=== PATIENT | female | born 1960 | race Caucasian/White ===

== ENCOUNTER → 2017-07-11 | Outpatient (CLI) | payer BC | LOC: M RAD 18:14 | DX: M17.0 Bilateral primary osteoarthritis of knee (principal); S83.241A Other tear of medial meniscus, current injury, right knee, initial encounter; Y92.89 Other specified places as the place of occurrence of the external cause; Y93.89 Activity, other specified; X58.XXXA Exposure to other specified factors, initial encounter; Y99.8 Other external cause status | CPT/HCPCS: 73565 ==

== ENCOUNTER → 2017-07-20 | Outpatient (CLI) | payer BC | LOC: M RAD 17:40 | DX: S83.241A Other tear of medial meniscus, current injury, right knee, initial encounter (principal); X58.XXXA Exposure to other specified factors, initial encounter; Y92.89 Other specified places as the place of occurrence of the external cause; M22.41 Chondromalacia patellae, right knee | CPT/HCPCS: 73721 ==

== ENCOUNTER → 2017-08-28 | Outpatient (CLI) | payer BC ==
[2017-08-28 09:52] LABS: ANION GAP 9 MEQ/L (8-16); BLOOD UREA NITROGEN 19 MG/DL (7-18); CARBON DIOXIDE LEVEL 28 MEQ/L (21-32); CHLORIDE LEVEL 105 MEQ/L (98-107); CREATININE FOR GFR 0.98 MG/DL (0.55-1.30); GLOMERULAR FILTRATION RATE > 60.0 (>51); GLUCOSE, FASTING 82 MG/DL (70-100); POTASSIUM SERUM 4.4 MEQ/L (3.5-5.1); SODIUM LEVEL 142 MEQ/L (136-145)
== END ==
LOC: M LAB 08:25
DX: I10 Essential (primary) hypertension (principal)
CPT/HCPCS: 80048

== ENCOUNTER → 2017-08-28 | Outpatient (CLI) | payer BC ==
[2017-08-28 09:35] LABS: ESTIMATED AVERAGE GLUCOSE 108 MG/DL (60-110); HEMOGLOBIN A1c 5.4 %
[2017-08-28 10:29] LABS: CHOLESTEROL LEVEL 205 MG/DL (<200); CHOLESTEROL RISK RATIO 3.727 (<5); HDL CHOLESTEROL 55 MG/DL (>40); NON-HDL-C 150 MG/DL; TRIGLYCERIDES LEVEL 125 MG/DL (<150)
[2017-08-29 11:26] LABS: HEPATITIS C VIRUS ABY INDEX 0.1 INDEX (<0.8)
== END ==
LOC: M LAB 08:27
DX: Z11.59 Encounter for screening for other viral diseases (principal)
CPT/HCPCS: 83036

== ENCOUNTER 2017-11-22 20:33 | Observation (INO) | payer MEDICAID, BC, SELFPAY ==
[2017-11-22 21:14] LABS: BASO # 0.1 10^3/uL (0.0-0.2); BASO % 0.7 % (0.0-1.0); EOS # 0.2 10^3/uL (0.0-0.50); EOS % 2.5 % (0.0-3.0); HEMATOCRIT 39.1 % (36.0-47.0); HEMOGLOBIN 12.7 g/dl (12.0-15.5); IMMATURE GRANULOCYTE % 0.3 % (0-3.0); LYMPH # 3.8 10^3/uL (1.5-4.5); LYMPH % 39.4 % (24.0-44.0); MEAN CORPUSCULAR HGB CONC 32.5 g/dl (32.0-36.5); MONO # 0.7 10^3/uL (0.0-0.8); MONO % 7.3 % (0.0-5.0); NEUTROPHILS # 4.7 10^3/uL (1.8-7.7); NEUTROPHILS % 49.8 % (36.0-66.0); PLATELET COUNT, AUTOMATED 413 10^3/uL (150-450); RED BLOOD COUNT 4.71 10^6/uL (4.00-5.40); WHITE BLOOD COUNT 9.5 10^3/uL (4.0-10.0)
[2017-11-22 21:35] LABS: ALBUMIN 3.4 GM/DL (3.2-5.2); ALBUMIN/GLOBULIN RATIO 0.92 (1.00-1.93); ALKALINE PHOSPHATASE 71 U/L (45-117); ALT/SGPT 20 U/L (12-78); ANION GAP 10 MEQ/L (8-16); AST/SGOT 15 U/L (7-37); BILIRUBIN,DIRECT < 0.1 MG/DL (0.0-0.2); BILIRUBIN,TOTAL 0.3 MG/DL (0.2-1.0); BLOOD UREA NITROGEN 20 MG/DL (7-18); CALCIUM LEVEL 8.6 MG/DL (8.5-10.1); CARBON DIOXIDE LEVEL 22 MEQ/L (21-32); CHLORIDE LEVEL 108 MEQ/L (98-107); CPK CREATINE PHOSPHOKINASE 81 U/L (26-192); CREATININE FOR GFR 1.01 MG/DL (0.55-1.30); GLOMERULAR FILTRATION RATE 59.9 (>51); GLUCOSE, FASTING 98 MG/DL (70-100); MB/CK RELATIVE INDEX 1.73 (< OR =4); POTASSIUM SERUM 3.9 MEQ/L (3.5-5.1); SODIUM LEVEL 140 MEQ/L (136-145); TOTAL PROTEIN 7.1 GM/DL (6.4-8.2); TROPONIN I < 0.02 NG/ML (< 0.10)
[2017-11-22 22:45] LABS: KETONE, URINE AUTO RFX NEGATIVE (NEGATIVE); LEUKOCYTE ESTERASE UR AUTO RFX TRACE (NEGATIVE); MUCUS, URINE RFX SMALL (NEGATIVE); NITRITE, URINE AUTO RFX NEGATIVE (NEGATIVE); RBC, URINE AUTO RFX 1 /HPF (0-3); SPECIFIC GRAVITY UR AUTO RFX 1.018 (1.002-1.035); SQUAM EPITHELIAL CELL UR AURFX 0 /HPF (0-6); WBC, URINE AUTO RFX 5 /HPF (0-3)
[2017-11-23] MEDS: NS 1,000 ML IV (01:31)
[2017-11-23 01:56] LABS: ETHYL ALCOHOL (ETHANOL) < 0.003 % (0.000-0.010)
[2017-11-23 06:07] LABS: TROPONIN I < 0.02 NG/ML (< 0.10)
[2017-11-23] MEDS: LOSARTAN 50 MG TAB PO (09:06)
[2017-11-23] MEDS: ENOXAPARIN 40 MG/0.4 ML SYRINGE (J1650) SC (09:07)
[2017-11-23 18:47] LABS: BEDSIDE GLUCOSE 93 MG/DL (70-105)
[2017-11-24 06:22] LABS: HEMATOCRIT 37.3 % (36.0-47.0); HEMOGLOBIN 12.1 g/dl (12.0-15.5); MEAN CORPUSCULAR HEMOGLOBIN 27.2 pg (27.0-33.0); MEAN CORPUSCULAR HGB CONC 32.4 g/dl (32.0-36.5); MEAN CORPUSCULAR VOLUME 83.8 fl (80.0-96.0); PLATELET COUNT, AUTOMATED 365 10^3/uL (150-450); RED BLOOD COUNT 4.45 10^6/uL (4.00-5.40); RED CELL DISTRIBUTION WIDTH 14.1 % (11.5-14.5); WHITE BLOOD COUNT 7.6 10^3/uL (4.0-10.0)
[2017-11-24 06:45] LABS: ANION GAP 5 MEQ/L (8-16); BLOOD UREA NITROGEN 14 MG/DL (7-18); CALCIUM LEVEL 8.7 MG/DL (8.5-10.1); CARBON DIOXIDE LEVEL 27 MEQ/L (21-32); CHLORIDE LEVEL 108 MEQ/L (98-107); CREATININE FOR GFR 0.81 MG/DL (0.55-1.30); GLOMERULAR FILTRATION RATE > 60.0 (>51); GLUCOSE, FASTING 76 MG/DL (70-100); POTASSIUM SERUM 4.1 MEQ/L (3.5-5.1); SODIUM LEVEL 140 MEQ/L (136-145)
[2017-11-24] MEDS: LOSARTAN 50 MG TAB PO (09:00)
[2017-11-24] MEDS: ENOXAPARIN 40 MG/0.4 ML SYRINGE (J1650) SC (09:00)
[2017-11-25 06:13] LABS: HEMATOCRIT 37.3 % (36.0-47.0); HEMOGLOBIN 11.9 g/dl (12.0-15.5); MEAN CORPUSCULAR HGB CONC 31.9 g/dl (32.0-36.5); MEAN CORPUSCULAR VOLUME 84.8 fl (80.0-96.0); PLATELET COUNT, AUTOMATED 369 10^3/uL (150-450); RED CELL DISTRIBUTION WIDTH 14.1 % (11.5-14.5); WHITE BLOOD COUNT 8.6 10^3/uL (4.0-10.0)
[2017-11-25 06:36] LABS: ANION GAP 6 MEQ/L (8-16); BLOOD UREA NITROGEN 17 MG/DL (7-18); CALCIUM LEVEL 8.9 MG/DL (8.5-10.1); CARBON DIOXIDE LEVEL 26 MEQ/L (21-32); CHLORIDE LEVEL 106 MEQ/L (98-107); CREATININE FOR GFR 0.89 MG/DL (0.55-1.30); GLOMERULAR FILTRATION RATE > 60.0 (>51); GLUCOSE, FASTING 80 MG/DL (70-100); SODIUM LEVEL 138 MEQ/L (136-145)
[2017-11-25] MEDS: LOSARTAN 50 MG TAB PO (07:50)
[2017-11-25] MEDS: ENOXAPARIN 40 MG/0.4 ML SYRINGE (J1650) SC (07:50)
[2017-11-26 12:48] LABS: BEDSIDE GLUCOSE 44 MG/DL (70-105)
[2017-11-26 12:48] LABS: BEDSIDE GLUCOSE 118 MG/DL (70-105)
== END 2017-11-25 11:55 | disposition home or self-care (01) ==
LOC: M ED INP 11-23 01:31 → M MSPAV 11-23 13:57 → M ED 20:33
DX: R55 Syncope and collapse (principal); R00.1 Bradycardia, unspecified; G47.33 Obstructive sleep apnea (adult) (pediatric); I10 Essential (primary) hypertension; Z79.899 Other long term (current) drug therapy; Z88.0 Allergy status to penicillin
CPT/HCPCS: J1650

== ENCOUNTER → 2018-05-16 | Outpatient (REF) | payer OTHER ==
[~2018-05-16] MED LIST: ASPI1TAB PO; DILT360C16 PO; K-TA10TA2 PO; LASI20TA3 PO; LOSA100T50 PO; LOSA25TA14 PO; SPIR-10 PO; [UNRECOGNIZED DRUG - OTHER]
[2018-05-16 19:07] LABS: BLOOD UREA NITROGEN 19 MG/DL (7-18); CALCIUM LEVEL 8.8 MG/DL (8.5-10.1); CARBON DIOXIDE LEVEL 27 MEQ/L (21-32); CHLORIDE LEVEL 106 MEQ/L (98-107); CREATININE FOR GFR 0.84 MG/DL (0.55-1.30); GLOMERULAR FILTRATION RATE > 60.0 (>51); GLUCOSE, FASTING 77 MG/DL (70-100); POTASSIUM SERUM 4.7 MEQ/L (3.5-5.1); SODIUM LEVEL 139 MEQ/L (136-145); VITAMIN B12 LEVEL 497 PG/ML (247-911)
== END ==
LOC: M SFHCPLAZ 14:23
PROVIDERS: ATTEND Family Medicine
DX: I10 Essential (primary) hypertension (principal); R29.2 Abnormal reflex; R68.89 Other general symptoms and signs

== ENCOUNTER → 2018-07-22 | Outpatient (CLI) | payer OTHER ==
[~2018-07-22] MED LIST changes: -ASPI1TAB PO; +ASPI81TA26 PO; +DILT1CAP10 PO; -DILT360C16 PO
--- NOTE | 2018-07-22 12:57 | REP ---
MR BRAIN WITHOUT CONTRAST: HISTORY: Forgetfulness. COMPARISON: CT 11/22/2017. Scattered punctate areas of increased signal intensity on T2-weighted images are present in the periventricular and subcortical white matter. This represents small vessel ischemic disease. There is no intraparenchymal hemorrhage, infarct, mass or midline shift. The ventricular system and cortical sulci are dilated consistent with minimal volume loss. There is no extracerebral collection. The sinuses are clear. IMPRESSION: 1. Minimal small vessel ischemic disease. 2. Minimal volume loss. Electronically Signed by Mayo Rojas MD 07/22/2018 01:02 P
== END ==
LOC: M RAD 11:14
PROVIDERS: ATTEND Internal Medicine
DX: I67.82 Cerebral ischemia (principal)

== ENCOUNTER → 2018-09-06 | Outpatient (REF) | payer OTHER ==
[2018-09-06 14:38] LABS: BLOOD UREA NITROGEN 19 MG/DL (7-18); CALCIUM LEVEL 8.6 MG/DL (8.5-10.1); CARBON DIOXIDE LEVEL 30 MEQ/L (21-32); CHLORIDE LEVEL 107 MEQ/L (98-107); CREATININE FOR GFR 0.86 MG/DL (0.55-1.30); GLOMERULAR FILTRATION RATE > 60.0 (>51); GLUCOSE, FASTING 97 MG/DL (70-100); POTASSIUM SERUM 3.6 MEQ/L (3.5-5.1); SODIUM LEVEL 143 MEQ/L (136-145)
== END ==
LOC: M SFHCPLAZ 13:08
PROVIDERS: ATTEND Internal Medicine
DX: I10 Essential (primary) hypertension (principal)

== ENCOUNTER 2018-10-15 20:47 | Emergency (ER) | payer OTHER ==
[~2018-10-15] VITALS: Ht 162.6 cm; Wt 90.9 kg
[2018-10-15] MEDS ORDERED: KETOROLAC TROMETHAMINE 10 MG TAB PO ONE (22:15)
[2018-10-15] MEDS ORDERED: LIDOCAINE 2% MDV 20 ML VIAL SC ONE (22:15)
--- NOTE | 2018-10-15 23:33 | REPVR ---
EXAM: CT Cervical Spine Without Contrast EXAM DATE/TIME: 10/15/2018 10:46 PM CLINICAL HISTORY: 58 years old, female; Injury or trauma; Fall; Initial encounter; Blunt trauma TECHNIQUE: Imaging protocol: Computed tomography images of the cervical spine without contrast. Coronal and sagittal reformatted images were created and reviewed. Radiation optimization: All CT scans at this facility use at least one of these dose optimization techniques: automated exposure control; mA and/or kV adjustment per patient size (includes targeted exams where dose is matched to clinical indication); or iterative reconstruction. COMPARISON: US Duplex,carotid (complete) 11/23/2017 1:46 AM FINDINGS: Vertebrae: No fracture or subluxation. Discs/Spinal canal/Neural foramina: Mild interspace narrowing at C5-C6 and to a lesser degree C4-C5 and C6-C7. Minimal scattered degenerative changes of apophyseal joints and uncovertebral joints with minimal anterior spurring from C5-C7. No spinal or foraminal stenosis. Soft tissues: Unremarkable. Lungs: Lung apices are normal. IMPRESSION: 1. Minimal scattered degenerative changes with no spinal or foraminal stenosis. 2. Otherwise negative CT cervical spine. No acute fracture or subluxation. Electronically signed by: Adelso Iglesias On 10/15/2018 23:32:59 PM
--- NOTE | 2018-10-15 23:37 | REPVR ---
EXAM: CT Maxillofacial Without Contrast EXAM DATE/TIME: 10/15/2018 10:46 PM CLINICAL HISTORY: 58 years old, female; Injury or trauma; Fall; Initial encounter; Blunt trauma (contusions or hematomas); Nose; Additional info: Fell on face TECHNIQUE: Imaging protocol: Computed tomography images of the face without contrast. Coronal and sagittal reformatted images were created and reviewed. Radiation optimization: All CT scans at this facility use at least one of these dose optimization techniques: automated exposure control; mA and/or kV adjustment per patient size (includes targeted exams where dose is matched to clinical indication); or iterative reconstruction. COMPARISON: No relevant prior studies available. FINDINGS: Orbits: Orbits are normal. Globes are unremarkable. Sinuses: Minimal right maxillary sinus mucosal thickening with mild hypoplasia. Bones/joints: Degenerative change of the right TMJ. No fractures. Soft tissues: Mild soft tissue swelling of the nose. IMPRESSION: 1. Mild soft tissue swelling of the nose. 2. Minimal right maxillary sinus disease with mild hypoplasia. 3. Otherwise negative CT facial bones. No fractures. Electronically signed by: Adelso Iglesias On 10/15/2018 23:37:15 PM
--- NOTE | 2018-10-16 01:43 | REP ---
Clinical: Trauma. Technique: AP, lateral, bilateral oblique and sunrise views left knee . 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 Findings include cortical irregularities and early osteophyte formation primarily involving the patella as well as subchondral sclerosis and minimal joint space narrowing. The osseous structures and joint spaces are intact and there is no evidence for acute fracture or dislocation. No joint effusion is appreciated. Surrounding soft tissues are unremarkable. No subcutaneous emphysema or radiodense foreign body. Impression: Degenerative changes. No acute fracture or dislocation. Electronically Signed by Song Galvin MD 10/16/2018 01:35 A
--- NOTE | 2018-10-16 01:44 | REP ---
Clinical: Trauma. Technique: AP, lateral, bilateral oblique views right hand . Findings: Mild osteopenia and age-related degenerative changes are appreciated. The osseous structures and joint spaces are intact and normal. There is no evidence for acute fracture or dislocation. Surrounding soft tissues are unremarkable. No subcutaneous emphysema or radiodense foreign body. Impression: No acute fracture or dislocation. Electronically Signed by Song Galvin MD 10/16/2018 01:36 A
[2018-10-16 01:52] VITALS: BP 195/93
[2019-02-05] MEDS ORDERED: ATOR1TAB19 PO (10:42)
== END 2018-10-16 01:56 | disposition home or self-care (01) ==
LOC: M ED 20:47
DX: S80.02XA Contusion of left knee, initial encounter (principal); S01.511A Laceration without foreign body of lip, initial encounter; W18.39XA Other fall on same level, initial encounter; Y92.410 Unspecified street and highway as the place of occurrence of the external cause; M79.641 Pain in right hand; I10 Essential (primary) hypertension; E78.5 Hyperlipidemia, unspecified; Z79.899 Other long term (current) drug therapy; Z88.0 Allergy status to penicillin; Z88.1 Allergy status to other antibiotic agents

== ENCOUNTER 2019-02-21 07:03 | Day surgery (SDC) | payer OTHER ==
[~2019-02-21] VITALS: Ht 162.6 cm; Wt 88.0 kg
[~2019-02-21 07:03] MED LIST changes: +ATOR1TAB19 PO
[2019-02-21] MEDS ORDERED: NS 1,000 ML IV ONE (07:30)
[2019-02-21] MEDS ORDERED: PROPOFOL 200 MG/20 ML VIAL As Ordered ONE (07:58)
[2019-02-21] MEDS ORDERED: LIDOCAINE 2% INJ 100 MG/5 ML SDV (FOR ANES.) As Ordered ONE (07:59)
--- NOTE | 2019-02-21 08:05 | ROOR ---
Patient Name: Inessa Lazo Procedure Date: 02/21/2019 7:34 AM Date of : 1960 Age: 58 Room: [facility] Gender: Female Note Status: Finalized Procedure: Colonoscopy Indications: High risk colon cancer surveillance: Personal history of colonic polyps, Last colonoscopy: June 2015 (cecal tubulovillous adenoma) Providers: Ken PEARSON MD Referring MD: SARA TALAVERA MD Requesting Provider: Medicines: Monitored Anesthesia Care Complications: No immediate complications. Procedure: Pre-Anesthesia Assessment: - The heart rate, respiratory rate, oxygen saturations, blood pressure, adequacy of pulmonary ventilation, and response to care were monitored throughout the procedure. The Colonoscope was introduced through the anus and advanced to the cecum, identified by appendiceal orifice and ileocecal valve. The colonoscopy was performed without difficulty. The patient tolerated the procedure well. The quality of the bowel preparation was good. Findings: The perianal and digital rectal examinations were normal. Multiple medium-mouthed diverticula were found in the sigmoid colon. The exam was otherwise without abnormality on direct and retroflexion views. Impression: - Diverticulosis in the sigmoid colon. - The examination was otherwise normal on direct and retroflexion views. - No specimens collected. Recommendation: - Repeat colonoscopy in 5 years for surveillance based on personal history of previous adenomatous polyps. Ken Pearson MD Ken PEARSON MD 02/21/2019 8:04:59 AM Electronically signed by Ken PEARSON MD Number of Addenda: 0 Note Initiated On: 02/21/2019 7:34 AM Estimated Blood Loss: Estimated blood loss: none.
[2019-02-21 08:25] VITALS: BP 125/73
== END 2019-02-21 08:37 | disposition home or self-care (01) ==
LOC: M OPP 07:03
PROVIDERS: ATTEND Internal Medicine Gastroenterology
DX: Z12.11 Encounter for screening for malignant neoplasm of colon (principal); Z86.010 Personal history of colon polyps; Z80.0 Family history of malignant neoplasm of digestive organs; K57.30 Diverticulosis of large intestine without perforation or abscess without bleeding; Z79.899 Other long term (current) drug therapy; Z88.0 Allergy status to penicillin

== ENCOUNTER 2019-10-30 21:02 | Emergency (ER) | payer BC, OTHER ==
[~2019-10-30] VITALS: Ht 162.6 cm; Wt 93.6 kg
[2019-10-30 22:02] LABS: BASO # 0.1 10^3/uL (0.0-0.2); BASO % 0.7 % (0.0-1.0); EOS # 0.2 10^3/uL (0.0-0.5); EOS % 2.8 % (0.0-3.0); HEMATOCRIT 37.6 % (36.0-47.0); HEMOGLOBIN 12.2 g/dl (12.0-15.5); LYMPH # 2.4 10^3/uL (1.5-5.0); LYMPH % 28.4 % (24.0-44.0); MEAN CORPUSCULAR HEMOGLOBIN 27.5 pg (27.0-33.0); MEAN CORPUSCULAR HGB CONC 32.4 g/dl (32.0-36.5); MEAN CORPUSCULAR VOLUME 84.9 fl (80.0-96.0); MONO # 0.5 10^3/uL (0.0-0.8); MONO % 5.6 % (0.0-5.0); NEUTROPHILS # 5.4 10^3/uL (1.5-8.5); NEUTROPHILS % 62.3 % (36.0-66.0); PLATELET COUNT, AUTOMATED 335 10^3/uL (150-450); RED BLOOD COUNT 4.43 10^6/uL (4.00-5.40); WHITE BLOOD COUNT 8.6 10^3/uL (4.0-10.0)
[2019-10-30 22:28] LABS: ALBUMIN 3.7 GM/DL (3.2-5.2); ALT/SGPT 21 U/L (12-78); BILIRUBIN,DIRECT 0.1 MG/DL (0.0-0.2); BILIRUBIN,TOTAL 0.4 MG/DL (0.2-1.0); BLOOD UREA NITROGEN 17 MG/DL (7-18); CALCIUM LEVEL 9.4 MG/DL (8.8-10.2); CARBON DIOXIDE LEVEL 29 MEQ/L (21-32); CHLORIDE LEVEL 105 MEQ/L (98-107); CREATININE FOR GFR 0.91 MG/DL (0.55-1.30); GLOMERULAR FILTRATION RATE > 60.0 (>45); GLUCOSE, FASTING 99 MG/DL (70-100); POTASSIUM SERUM 3.9 MEQ/L (3.5-5.1); SODIUM LEVEL 137 MEQ/L (136-145); TOTAL PROTEIN 7.6 GM/DL (6.4-8.2)
[2019-10-30] MEDS ORDERED: METOCLOPRAMIDE INJ 10MG/2ML VIAL (J2765 PER 1) IV ONE (22:30)
[2019-10-30] MEDS ORDERED: NS 1,000 ML IV ONE (22:30)
--- NOTE | 2019-10-30 22:44 | REPVR ---
PROCEDURE INFORMATION: Exam: CT Head Without Contrast Exam date and time: 10/30/2019 10:31 PM Age: 59 years old Clinical indication: Dizziness TECHNIQUE: Imaging protocol: Computed tomography of the head without contrast. Radiation optimization: All CT scans at this facility use at least one of these dose optimization techniques: automated exposure control; mA and/or kV adjustment per patient size (includes targeted exams where dose is matched to clinical indication); or iterative reconstruction. COMPARISON: CT Head without contrast 11/22/2017 9:39 PM FINDINGS: There are no intra-or extra-axial hemorrhages or fluid collections. There is no mass effect or midline shift. Ventricles are nondilated for age. There are no focal parenchymal abnormalities. No calvarial fractures. IMPRESSION: No acute intracranial process. No intracranial hemorrhage. Electronically signed by: Jose Briscoe On 10/30/2019 22:44:22 PM
[2019-10-31 01:40] VITALS: BP 136/80
--- NOTE | 2019-11-24 15:23 | ECGEPIP ---
[facility] - ED Test Date: 2019-10-30 Pat Name: CAMILO CEBALLOS Department: Room: - Gender: Female [employer] Supervisor: jenn : 1960 Requested By: YADY Page Order Number: [id number] Reading MD: Radha Thornton Measurements Intervals [place] Rate: 57 P: 70 MD: 185 QRS: 51 QRSD: 81 T: 62 QT: 406 QTc: 396 Interpretive Statements SINUS BRADYCARDIA POSSIBLE LEFT ATRIAL ENLARGEMENT BORDELINE ECG SEPTAL INFARCT AGE UNDETERMINATE SEE SCANNED DOWNTIME REPORT
== END 2019-10-31 01:59 | disposition home or self-care (01) ==
LOC: M ED 21:02
DX: R55 Syncope and collapse (principal); Z88.0 Allergy status to penicillin; Z88.1 Allergy status to other antibiotic agents
CPT/HCPCS: 36415; 70450; 80048; 80076; 84443; 85025; 93005; 93041; 94760; 96361; 96374; 99285; J2765

== ENCOUNTER → 2022-10-07 | Outpatient (CLI) | payer BC ==
[~2022-10-07] MED LIST changes: -DILT1CAP10 PO; +DILT360C8 PO; -K-TA10TA2 PO; +LOSA100T46 PO; -LOSA100T50 PO; +LOSA25TA13 PO; -LOSA25TA14 PO; +POTA-165 PO
== END ==
LOC: M RAD 09:45
PROVIDERS: ATTEND Student in an Organized Health Care Education/Training Program
DX: M47.812 Spondylosis without myelopathy or radiculopathy, cervical region (principal)

== ENCOUNTER → 2022-10-25 | Outpatient (CLI) | payer BC ==
[2022-10-25 13:30] LABS: BASO # 0.1 10^3/uL (0.0-0.2); BASO % 0.8 % (0.0-1.0); EOS # 0.3 10^3/uL (0.0-0.5); EOS % 3.1 % (0.0-3.0); HEMOGLOBIN 14.1 g/dl (12.0-15.5); LYMPH # 2.6 10^3/uL (1.5-5.0); LYMPH % 30.2 % (24.0-44.0); MEAN CORPUSCULAR HEMOGLOBIN 27.2 pg (27.0-33.0); MEAN CORPUSCULAR VOLUME 84.8 fl (80.0-96.0); MONO # 0.6 10^3/uL (0.0-0.8); NEUTROPHILS % 58.4 % (36.0-66.0); PLATELET COUNT, AUTOMATED 486 10^3/uL (150-450); RED BLOOD COUNT 5.19 10^6/uL (4.00-5.40); WHITE BLOOD COUNT 8.6 10^3/uL (4.0-10.0)
[2022-10-25 13:41] LABS: ALBUMIN 3.8 G/DL (3.2-5.2); ALKALINE PHOSPHATASE 96 U/L (46-116); ALT/SGPT 16 U/L (7.0-40); AST/SGOT 13 U/L (<34); BILIRUBIN,TOTAL 0.8 MG/DL (0.3-1.2); BLOOD UREA NITROGEN 20 MG/DL (9-23); CALCIUM LEVEL 9.8 MG/DL (8.3-10.6); CARBON DIOXIDE LEVEL 28 MMOL/L (20-31); CHLORIDE LEVEL 104 MMOL/L (98-107); CHOLESTEROL LEVEL 183 MG/DL (<200); CHOLESTEROL RISK RATIO 3.49 (<5); CREATININE FOR GFR 0.92 MG/DL (0.55-1.30); GLOMERULAR FILTRATION RATE > 60.0 (>45); GLUCOSE, FASTING 82 MG/DL (74-106); HDL CHOLESTEROL 52.3 MG/DL (>40); LDL CHOLESTEROL 112.5 MG/DL (<100); NON-HDL-C 130.7 MG/DL; POTASSIUM SERUM 4.8 MMOL/L (3.5-5.1); SODIUM LEVEL 140 MMOL/L (136-145); THYROID STIMULATING HORMONE 1.689 uIU/ML (0.55-4.78); TOTAL 25(OH) VITAMIN D 11.4 NG/ML (20.0-100.0); TOTAL PROTEIN 7.7 G/DL (5.7-8.2); TRIGLYCERIDES LEVEL 91 MG/DL (<150)
== END ==
LOC: M PLALAB 09:52
PROVIDERS: ATTEND Student in an Organized Health Care Education/Training Program
DX: Z00.00 Encounter for general adult medical examination without abnormal findings (principal)

== ENCOUNTER → 2022-12-13 | Outpatient (CLI) | payer BC | LOC: M SLEEP 12-07 11:43 → M SLEEP HO 11:00 | PROVIDERS: ATTEND Internal Medicine Pulmonary Disease | DX: G47.33 Obstructive sleep apnea (adult) (pediatric) (principal) ==

== ENCOUNTER → 2023-07-26 | Outpatient (CLI) | payer OTHER, SELFPAY | LOC: M RAD 14:43 | PROVIDERS: ATTEND Physician Assistant | DX: S13.8XXA Sprain of joints and ligaments of other parts of neck, initial encounter (principal); M50.30 Other cervical disc degeneration, unspecified cervical region; X58.XXXA Exposure to other specified factors, initial encounter; Y92.9 Unspecified place or not applicable ==

== ENCOUNTER 2023-10-03 06:26 | Observation (INO) | payer OTHER ==
[2023-10-03] VITALS (42 sets, daily range): BP systolic 102–185; BP diastolic 56–86; TEMP 97.3–97.8; O2SAT 89–96
[~2023-10-03] VITALS: Ht 162.6 cm; Wt 91.5 kg
[2023-10-03 07:48] LABS: BASO # 0.1 10^3/uL (0.0-0.2); BASO % 0.6 % (0.0-1.0); EOS # 0.1 10^3/uL (0.0-0.5); HEMATOCRIT 45.2 % (36.0-47.0); HEMOGLOBIN 14.8 g/dl (12.0-15.5); LYMPH # 1.6 10^3/uL (1.5-5.0); LYMPH % 15.2 % (24.0-44.0); MEAN CORPUSCULAR HEMOGLOBIN 27.3 pg (27.0-33.0); MEAN CORPUSCULAR HGB CONC 32.7 g/dl (32.0-36.5); MEAN CORPUSCULAR VOLUME 83.2 fl (80.0-96.0); MONO # 0.5 10^3/uL (0.0-0.8); MONO % 4.2 % (2.0-8.0); NEUTROPHILS # 8.5 10^3/uL (1.5-8.5); NEUTROPHILS % 78.6 % (36.0-66.0); PLATELET COUNT, AUTOMATED 478 10^3/uL (150-450); RED BLOOD COUNT 5.43 10^6/uL (4.00-5.40); WHITE BLOOD COUNT 10.8 10^3/uL (4.0-10.0)
[2023-10-03 08:08] LABS: LIPASE 33 U/L (12-53)
[2023-10-03 08:10] LABS: ALBUMIN 3.8 G/DL (3.2-5.2); ALKALINE PHOSPHATASE 103 U/L (46-116); ALT/SGPT 16 U/L (7.0-40); AST/SGOT 15 U/L (<34); BILIRUBIN,DIRECT 0.3 MG/DL (<0.4); BLOOD UREA NITROGEN 11 MG/DL (9-23); CALCIUM LEVEL 9.2 MG/DL (8.3-10.6); CARBON DIOXIDE LEVEL 23 MMOL/L (20-31); CHLORIDE LEVEL 103 MMOL/L (98-107); CREATININE FOR GFR 0.78 MG/DL (0.55-1.30); GLOMERULAR FILTRATION RATE > 60.0 (>45); GLUCOSE, FASTING 138 MG/DL (74-106); SODIUM LEVEL 137 MMOL/L (136-145); TOTAL PROTEIN 7.4 G/DL (5.7-8.2)
[2023-10-03] MEDS: NS 1,000 ML IV ONE (09:32)
[2023-10-03] MEDS: ONDANSETRON 4MG 2ML VIAL IV ONE (09:32)
[2023-10-03 09:57] LABS: APPEARANCE, URINE CLEAR (CLEAR); BACTERIA, URINE AUTO NEGATIVE (NEGATIVE); BILIRUBIN, URINE AUTO NEGATIVE (NEGATIVE); BLOOD, URINE BLOOD NEGATIVE (NEGATIVE); COLOR, URINE YELLOW (YELLOW); GLUCOSE, URINE (UA) AUTO NEGATIVE (NEGATIVE); KETONE, URINE AUTO TRACE mg/dL (NEGATIVE); LEUKOCYTE ESTERASE, URINE AUTO NEGATIVE (NEGATIVE); MUCUS, URINE SMALL (NEGATIVE); NITRITE, URINE AUTO NEGATIVE (NEGATIVE); PROTEIN, URINE AUTO NEGATIVE (NEGATIVE); RBC, URINE AUTO 0 /HPF (0-3); SPECIFIC GRAVITY URINE AUTO 1.009 (1.002-1.035); SQUAMOUS EPITHELIAL CELL UR AU 1 /HPF (0-6); UROBILINOGEN, URINE AUTO 0.2 mg/dL (0.0-2.0); WBC, URINE AUTO 2 /HPF (0-3)
[2023-10-03] MEDS: KETOROLAC 30 MG/ML 1ML VIAL IV ONE (09:57)
[2023-10-03] MEDS ORDERED: ISOVUE-370 76% 100ML VIAL As Ordered ONE (10:00)
[2023-10-03] MEDS: cefTRIAXone SOD 1 GM in D5W MINI-BAG PLUS 50 ML IV ONE (11:38)
[2023-10-03] MEDS ORDERED: HOME MED LIST COMPLETE! XX SCH (12:05)
[2023-10-03] MEDS ORDERED: ONDANSETRON 4MG 2ML VIAL IV PRN ×2 (12:50→18:15)
[2023-10-03] MEDS: NS 1,000 ML IV SCH (12:50)
[2023-10-03] MEDS ORDERED: MORPHINE 2 MG/ML 1ML VIAL IV PRN (12:50)
[2023-10-03] MEDS: HEPARIN SOD (PORCINE) 5000UNITS/ML 1ML VIAL/SYRINGE SC SCH (14:00)
[2023-10-03] MEDS: metroNIDAZOLE 500 MG in IV 1 EA IV SCH (14:24)
[2023-10-03] MEDS: amLODIPine 5 MG TAB PO ONE (16:05)
[2023-10-03] MEDS ORDERED: MIDAZOLAM INJ 2MG/2ML VIAL As Ordered ONE (16:31)
[2023-10-03] MEDS ORDERED: fentaNYL 250 MCG/5 ML INJECTION As Ordered ONE (16:31)
[2023-10-03] MEDS ORDERED: ONDANSETRON 4MG 2ML VIAL As Ordered ONE (16:32)
[2023-10-03] MEDS ORDERED: SUGAMMADEX SODIUM 500 MG/5 ML VIAL (BRIDION) As Ordered ONE (16:32)
[2023-10-03] MEDS ORDERED: KETOROLAC 60MG 2ML VIAL As Ordered ONE (16:32)
[2023-10-03] MEDS ORDERED: ACETAMINOPHEN 1000MG 100ML IV BAG As Ordered ONE (16:32)
[2023-10-03] MEDS ORDERED: LIDOCAINE 2% 100MG/5ML SDV (FOR ANES.) As Ordered ONE (16:32)
[2023-10-03] MEDS ORDERED: propofoL 200 MG/20 ML VIAL As Ordered ONE (16:32)
[2023-10-03] MEDS ORDERED: ROCURONIUM BROMIDE 50MG/5ML VIAL As Ordered ONE (16:32)
[2023-10-03] MEDS ORDERED: hydrALAZINE 20MG/ML 1ML VIAL IV STA (17:19)
[2023-10-03] MEDS ORDERED: ePHEDrine SULFATE 25 MG/5 ML(5MG/ML) SYRINGE As Ordered ONE (17:32)
[2023-10-03] MEDS ORDERED: hydrALAZINE 20MG/ML 1ML VIAL As Ordered ONE (17:40)
[2023-10-03] MEDS ORDERED: fentaNYL 100 MCG/2 ML INJECTION IV PRN (18:15)
[2023-10-03] MEDS: oxyCODONE 5MG TAB PO PRN (18:48)
[2023-10-03] MEDS: HYDROMORPHONE HCL 0.5 MG/ 0.5 ML SYRINGE IV PRN (18:48)
[2023-10-03] MEDS: LR 1,000 ML IV SCH (18:52)
[2023-10-03] MEDS: LOSARTAN 25 MG TAB PO SCH (21:00)
[2023-10-03] MEDS: ATORVASTATIN 10 MG TAB PO SCH (21:10)
[2023-10-04] VITALS (26 sets, daily range): BP systolic 94–134; BP diastolic 53–85; TEMP 97.7–97.9; O2SAT 93–97
[2023-10-04] MEDS: ACETAMINOPHEN TAB 650MG DOSE (2X325MG) PO PRN (04:05)
[2023-10-04 05:57] LABS: BASO % 0.2 % (0.0-1.0); HEMATOCRIT 40.6 % (36.0-47.0); HEMOGLOBIN 13.1 g/dl (12.0-15.5); LYMPH # 0.8 10^3/uL (1.5-5.0); LYMPH % 6.9 % (24.0-44.0); MEAN CORPUSCULAR HEMOGLOBIN 27.1 pg (27.0-33.0); MEAN CORPUSCULAR HGB CONC 32.3 g/dl (32.0-36.5); MEAN CORPUSCULAR VOLUME 84.1 fl (80.0-96.0); MONO # 0.2 10^3/uL (0.0-0.8); MONO % 1.8 % (2.0-8.0); NEUTROPHILS # 9.9 10^3/uL (1.5-8.5); NEUTROPHILS % 90.6 % (36.0-66.0); PLATELET COUNT, AUTOMATED 443 10^3/uL (150-450); RED BLOOD COUNT 4.83 10^6/uL (4.00-5.40)
[2023-10-04 06:22] LABS: BLOOD UREA NITROGEN 12 MG/DL (9-23); CALCIUM LEVEL 8.7 MG/DL (8.3-10.6); CARBON DIOXIDE LEVEL 25 MMOL/L (20-31); CHLORIDE LEVEL 109 MMOL/L (98-107); GLOMERULAR FILTRATION RATE > 60.0 (>45); GLUCOSE, FASTING 107 MG/DL (74-106); MAGNESIUM LEVEL 1.9 MG/DL (1.8-2.4); POTASSIUM SERUM 4.3 MMOL/L (3.5-5.1); SODIUM LEVEL 140 MMOL/L (136-145)
[2023-10-04] MEDS ORDERED: cefTRIAXone SOD 2 GM in D5W MINI-BAG PLUS 50 ML IV SCH (12:00)
== END 2023-10-04 19:04 | disposition home or self-care (01) ==
LOC: M ED 06:26 → M ED INP 12:50 → INTOOBSV 12:50 → M MSPAV 15:35 → M PCU 19:35
PROVIDERS: ADMIT Internal Medicine; ATTEND Internal Medicine
DX: K35.890 Other acute appendicitis without perforation or gangrene (principal); D72.829 Elevated white blood cell count, unspecified; E78.5 Hyperlipidemia, unspecified; G47.33 Obstructive sleep apnea (adult) (pediatric); Z79.899 Other long term (current) drug therapy; E55.9 Vitamin D deficiency, unspecified; H40.9 Unspecified glaucoma; I10 Essential (primary) hypertension; Z88.0 Allergy status to penicillin; Z88.8 Allergy status to other drugs, medicaments and biological substances; I73.9 Peripheral vascular disease, unspecified
CPT/HCPCS: 36415; 44970; 74177; 80048; 80076; 81001; 83690; 83735; 85025; 86850; 86900; 86901; 88304; 96361; 96365; 96366; 96367; 96372; 96375; 97116; 97161; 99284; J0131; J0360; J0665; J0696; J1100; J1170; J1836; J1885; J2250; J2405; J3010; Q9967; S2900

== ENCOUNTER 2024-06-25 20:44 | Inpatient (IN) | payer OTHER ==
[~2024-06-25] VITALS: Ht 160 cm; Wt 95.2 kg
[2024-06-25 21:34] LABS: BASO # 0.1 10^3/uL (0.0-0.2); EOS # 0.3 10^3/uL (0.0-0.5); EOS % 3.1 % (0.0-3.0); HEMATOCRIT 47.7 % (36.0-47.0); HEMOGLOBIN 15.6 g/dl (12.0-15.5); LYMPH # 2.8 10^3/uL (1.5-5.0); LYMPH % 30.5 % (24.0-44.0); MEAN CORPUSCULAR HEMOGLOBIN 27.2 pg (27.0-33.0); MEAN CORPUSCULAR HGB CONC 32.7 g/dl (32.0-36.5); MEAN CORPUSCULAR VOLUME 83.2 fl (80.0-96.0); MONO # 0.6 10^3/uL (0.0-0.8); MONO % 6.4 % (2.0-8.0); NEUTROPHILS # 5.4 10^3/uL (1.5-8.5); NEUTROPHILS % 58.7 % (36.0-66.0); PLATELET COUNT, AUTOMATED 538 10^3/uL (150-450); RED BLOOD COUNT 5.73 10^6/uL (4.00-5.40); WHITE BLOOD COUNT 9.1 10^3/uL (4.0-10.0)
[2024-06-25 21:56] LABS: INR 1.03; PARTIAL THROMBOPLASTIN TIME 31.4 SECONDS (24.8-34.2); PROTHROMBIN TIME 13.8 SECONDS (12.5-14.5)
[2024-06-25] MEDS: LABETALOL 100MG/20ML VIAL IV STA (22:00)
[2024-06-25 22:13] LABS: KETONE, URINE AUTO RFX NEGATIVE (NEGATIVE); LEUKOCYTE ESTERASE UR AUTO RFX NEGATIVE (NEGATIVE); MUCUS, URINE RFX SMALL (NEGATIVE); NITRITE, URINE AUTO RFX NEGATIVE (NEGATIVE); RBC, URINE AUTO RFX 0 /HPF (0-3); SQUAM EPITHELIAL CELL UR AURFX 0 /HPF (0-6); WBC, URINE AUTO RFX 0 /HPF (0-3)
[2024-06-26] VITALS (23 sets, daily range): BP systolic 90–203; BP diastolic 57–100; TEMP 97–98.6; O2SAT 94–98
[2024-06-26] MEDS: LABETALOL 100MG/20ML VIAL IV SCH (00:29)
[2024-06-26 01:12] LABS: ALBUMIN 3.4 G/DL (3.2-5.2); ALKALINE PHOSPHATASE 94 U/L (35-104); ALT/SGPT 13 U/L (7.0-40); AST/SGOT 14 U/L (<34); BILIRUBIN,TOTAL 0.5 MG/DL (0.3-1.2); BLOOD UREA NITROGEN 13 MG/DL (9-23); CARBON DIOXIDE LEVEL 26 MMOL/L (20-31); CHLORIDE LEVEL 106 MMOL/L (98-107); CREATININE FOR GFR 0.71 MG/DL (0.55-1.30); GLOMERULAR FILTRATION RATE > 90.0 (>45); GLUCOSE, FASTING 103 MG/DL (74-106); MAGNESIUM LEVEL 1.9 MG/DL (1.8-2.4); PHOSPHORUS LEVEL 3.9 MG/DL (2.4-5.1); POTASSIUM SERUM 3.8 MMOL/L (3.5-5.1); SODIUM LEVEL 142 MMOL/L (136-145); TOTAL PROTEIN 6.9 G/DL (5.7-8.2)
[2024-06-26] MEDS ORDERED: MED REC IN PROGRESS XX SCH (06:15)
[2024-06-26] MEDS ORDERED: HOME MED LIST COMPLETE! XX SCH (09:20)
[2024-06-26] MEDS: SPIRONOLACTONE 25 MG TAB PO SCH (10:29)
[2024-06-26] MEDS: LOSARTAN 25 MG TAB PO SCH (11:05)
[2024-06-26] MEDS: ENOXAPARIN 40MG/0.4ML SYRINGE (J1650 PER 10MG) SC SCH (13:18)
[2024-06-26 14:45] LABS: HEMOGLOBIN A1c 5.2 % (4.0-6.0)
[2024-06-26 14:52] LABS: CHOLESTEROL RISK RATIO 3.58 (<5); HDL CHOLESTEROL 53.3 MG/DL (>40); LDL CHOLESTEROL 114.7 MG/DL (<100); NON-HDL-C 137.7 MG/DL
[2024-06-26] MEDS: ASPIRIN 81MG ENTERIC TABLET PO SCH (14:57)
[2024-06-26] MEDS: ATORVASTATIN 10 MG TAB PO SCH (20:06)
[2024-06-26] MEDS: amLODIPine 5 MG TAB PO ONE (20:06)
[2024-06-27 03:46] VITALS: BP 169/95; TEMP 98; O2SAT 97
[2024-06-27 03:56] VITALS: BP 148/96
[2024-06-27 08:00] VITALS: BP 146/79; TEMP 98.1; O2SAT 96
[2024-06-27 08:39] VITALS: BP 146/79
[2024-06-27] MEDS ORDERED: ATOR40TA75 PO (09:31)
[2024-06-27] MEDS ORDERED: ASPI1CHW2 PO (09:31)
[2024-06-27] MEDS ORDERED: NORV5TAB PO (09:31)
[2024-06-27 09:50] VITALS: BP 152/98
[2024-06-27 10:36] VITALS: BP 142/90
[2024-06-28] MEDS ORDERED: LOSA25TA13 PO (11:33)
[2024-06-28] MEDS ORDERED: LOSA50TA28 PO (21:59)
== END 2024-06-27 13:42 | disposition home or self-care (01) | DRG 199 ==
LOC: M ED 20:44 → M ED INP 06-26 00:12 → M ICU 06-26 01:03 → M PCU 06-26 17:55
PROVIDERS: ADMIT Student in an Organized Health Care Education/Training Program; ATTEND Student in an Organized Health Care Education/Training Program
PROC: B246ZZZ Ultrasonography of Right and Left Heart (ICD-10-PCS; principal; 2024-06-26)
DX: I16.0 Hypertensive urgency (principal); I08.1 Rheumatic disorders of both mitral and tricuspid valves; E55.9 Vitamin D deficiency, unspecified; E78.5 Hyperlipidemia, unspecified; G47.33 Obstructive sleep apnea (adult) (pediatric); I87.2 Venous insufficiency (chronic) (peripheral); H40.9 Unspecified glaucoma; Z86.73 Personal history of transient ischemic attack (TIA), and cerebral infarction without residual deficits; Z90.49 Acquired absence of other specified parts of digestive tract; Z79.82 Long term (current) use of aspirin; Z79.899 Other long term (current) drug therapy; Z88.0 Allergy status to penicillin; Z87.891 Personal history of nicotine dependence; Z88.1 Allergy status to other antibiotic agents; I10 Essential (primary) hypertension

== ENCOUNTER 2024-06-28 17:44 | Emergency (ER) | payer OTHER ==
[~2024-06-28] VITALS: Ht 160 cm; Wt 95.0 kg
[~2024-06-28 17:44] MED LIST changes: +ASPI1CHW2 PO; +ATOR40TA75 PO; +NORV5TAB PO
[2024-06-28 19:58] LABS: BLOOD UREA NITROGEN 13 MG/DL (9-23); CALCIUM LEVEL 9.4 MG/DL (8.3-10.6); CARBON DIOXIDE LEVEL 27 MMOL/L (20-31); CHLORIDE LEVEL 102 MMOL/L (98-107); CREATININE FOR GFR 0.72 MG/DL (0.55-1.30); GLOMERULAR FILTRATION RATE > 90.0 (>45); GLUCOSE, FASTING 87 MG/DL (74-106); POTASSIUM SERUM 4.4 MMOL/L (3.5-5.1); SODIUM LEVEL 139 MMOL/L (136-145)
[2024-06-28 20:01] LABS: THYROID STIMULATING HORMONE 1.497 uIU/ML (0.55-4.78)
[2024-06-28] MEDS: LOSARTAN 50MG TABLET PO ONE (20:20)
[2024-06-28] MEDS: FUROSEMIDE 40MG/4ML VIAL IV ONE (20:21)
[2024-06-28 21:28] VITALS: TEMP 98; O2SAT 95
[2024-06-28 21:32] VITALS: BP 140/80
[2024-06-28] MEDS ORDERED: LOSA50TA28 PO (21:59)
== END 2024-06-28 22:13 | disposition home or self-care (01) ==
LOC: M ED 17:44
DX: I10 Essential (primary) hypertension (principal); E78.5 Hyperlipidemia, unspecified; G47.00 Insomnia, unspecified; H40.9 Unspecified glaucoma; I87.2 Venous insufficiency (chronic) (peripheral); Z87.891 Personal history of nicotine dependence; Z79.899 Other long term (current) drug therapy; Z88.0 Allergy status to penicillin
CPT/HCPCS: 36415; 80048; 84443; 96374; 99284; J1938

== ENCOUNTER → 2024-11-11 | Outpatient (CLI) | payer MEDICARE, OTHER ==
[~2024-11-11] MED LIST changes: +LOSA50TA28 PO
[2024-11-11 15:00] LABS: BASO # 0.1 10^3/uL (0.0-0.2); BASO % 1.0 % (0.0-1.0); EOS # 0.3 10^3/uL (0.0-0.5); EOS % 3.2 % (0.0-3.0); LYMPH # 2.6 10^3/uL (1.5-5.0); LYMPH % 31.7 % (24.0-44.0); MONO # 0.5 10^3/uL (0.0-0.8); MONO % 6.0 % (2.0-8.0); NEUTROPHILS # 4.7 10^3/uL (1.5-8.5); NEUTROPHILS % 57.7 % (36.0-66.0); PLATELET COUNT, AUTOMATED 608 10^3/uL (150-450)
[2024-11-11 15:21] LABS: ALT/SGPT 15.0 U/L (7.0-40); AST/SGOT 21.0 U/L (<34); CALCIUM LEVEL 9.9 MG/DL (8.3-10.6); CARBON DIOXIDE LEVEL 26.0 MMOL/L (20-31); CHLORIDE LEVEL 106.0 MMOL/L (98-107); CHOLESTEROL LEVEL 207.0 MG/DL (<200); CHOLESTEROL RISK RATIO 4.07 (<5); CREATININE FOR GFR 0.81 MG/DL (0.55-1.30); GLOMERULAR FILTRATION RATE 80.5 (>45); LDL CHOLESTEROL 137.6 MG/DL (<100); NON-HDL-C 156.2 MG/DL; POTASSIUM SERUM 4.7 MMOL/L (3.5-5.1); SODIUM LEVEL 144.0 MMOL/L (136-145); TRIGLYCERIDES LEVEL 93.0 MG/DL (<150)
[2024-11-11 16:53] LABS: ESTIMATED AVERAGE GLUCOSE 108.0 MG/DL (60-110)
== END ==
LOC: M PLALAB 11:07
PROVIDERS: ATTEND Student in an Organized Health Care Education/Training Program
DX: Z86.73 Personal history of transient ischemic attack (TIA), and cerebral infarction without residual deficits (principal); R43.2 Parageusia; Z79.899 Other long term (current) drug therapy

== ENCOUNTER → 2025-02-04 | Outpatient (CLI) | payer MEDICARE, OTHER ==
[2025-02-04 15:26] LABS: CHOLESTEROL LEVEL 155.0 MG/DL (<200); CHOLESTEROL RISK RATIO 2.72 (<5); LDL CHOLESTEROL 69.0 MG/DL (<100); NON-HDL-C 98.2 MG/DL; TRIGLYCERIDES LEVEL 146.0 MG/DL (<150)
[2025-02-04 15:31] LABS: TOTAL 25(OH) VITAMIN D 24.8 NG/ML (20.0-100.0)
== END ==
LOC: M PLALAB 14:05
PROVIDERS: ATTEND Student in an Organized Health Care Education/Training Program
DX: E78.5 Hyperlipidemia, unspecified (principal); E55.9 Vitamin D deficiency, unspecified